=== PATIENT | male | born 1995 | race Caucasian/White ===

== ENCOUNTER 2025-11-02 10:27 | Emergency (ER) | payer OTHER, SELFPAY ==
[2025-11-02 10:34] VITALS: BP 180/76
--- NOTE | 2025-11-02 12:42 | ED.MUSCINJ ---
HPI-Injury
General
Chief Complaint: Musculo-Skeletal Complaint
Source: patient
Exam Limitations: none
Time Seen by Provider: 11/02/25 12:38
Nursing documentation reviewed up to this point in time: agreed with
History of Present Illness-Injury
Is this injury a work related problem?: Yes
Is pt an associate of [facility]?: No
Initial Injury comments:
Note:
CHIEF COMPLAINT(S)
Left elbow pain following a fall.
HISTORY OF PRESENT ILLNESS
The patient is a 30-year-old male who presented with left elbow pain and tingling following a fall that occurred this morning. The patient reports slipping and falling directly onto the left elbow. Initially, there was no significant pain; however,
two hours post-fall, the patient experienced soreness and a tingling sensation extending to the left index finger. The patient describes the sensation as a tingling, with some numbness experienced closer to the middle of the finger. The patient
denies current significant discomfort aside from residual soreness and reports being engaged in weightlifting activities regularly. There were no additional injuries with the exception of a minor impact to the left knee which was not associated with
pain. The patient expressed concern about potential fractures, but physical examination and X-ray findings indicate no fractures present.
SOCIAL DETERMINANTS AFFECTING HEALTH
The patient is involved in regular weightlifting.
PHYSICAL EXAM
General: Alert, no acute distress.
Skin: Warm, dry.
Head: Normocephalic, atraumatic.
Neck: Supple, trachea midline.
Ears, Nose, Mouth, and Throat: Oral mucosa moist.
Cardiovascular: Normal peripheral perfusion, no edema.
Respiratory: Respirations are non-labored.
Gastrointestinal: Abdomen nondistended.
Back: Normal range of motion, normal alignment.
Musculoskeletal: Normal range of motion, normal strength. Left elbow with no tenderness, no deformity and no swelling.
Neurological: Alert and oriented to person, place, time, and situation. Sensory examination was notable for tingling in the left index finger, but no motor deficits observed.
Psychiatric: Cooperative, appropriate mood & affect.
PLAN
- Recommend application of ice to the affected area to reduce swelling.
- Uesm-lwh-hwjcfth Ibuprofen for pain management, provided to the patient in the facility.
- No further intervention required at the present time as the evaluation, including X-ray, showed no fractures or significant findings.
- Encourage follow-up if symptoms persist or worsen.
DIFFERENTIAL DIAGNOSIS
The Differential Diagnosis includes, in no particular order and is not limited to:
- Soft tissue injury
- Ulnar nerve compression or contusion
- Bursitis
- Tendinitis
- Fracture (excluded by current X-ray findings)
- Radial nerve injury
- Joint sprain
- Olecranon bursitis
- Ligament strain
- Impingement syndrome
CARE-UPDATE
11/02/25 - 12:43
Patients elbow x-ray reveals no fracture. Exhibits full range of motion across all extremities. No additional injuries noted.
Disposition:
SUMMARY OF ENCOUNTER
The patient was seen in the emergency department for left elbow pain and tingling following a fall. Evaluation included physical examination and imaging, which indicated no fracture or significant findings. The patient was diagnosed with a left
elbow contusion. Management included pain relief with ibuprofen, as needed, and reassurance regarding the absence of fractures.
DISPOSITION
Discharge home in good condition.
ASSESSMENT
Left elbow contusion with no signs of fracture.
EMERGENCY TREATMENTS ADMINISTERED
Ibuprofen was given in the emergency department.
PLAN
Recommend applying ice to the affected area and taking meoo-zyz-dhqkpyu ibuprofen as needed for pain. Follow up with the primary care provider if symptoms persist or worsen.
INDEPENDENT REVIEW OF LABS AND INTERPRETATION OF TESTS
My independent interpretation of the elbow x-ray is that there is no fracture present.
PATIENT EDUCATION AND COUNSELING
The patient was counseled on the use of ice and ibuprofen for symptom management and reassured about the lack of fractures.
FOLLOW-UP INSTRUCTIONS
Follow up with primary care as needed.
MEDICATION RECONCILIATION
Ibuprofen was administered in the emergency department for pain management.
MEDICAL DECISION MAKING
-Complexity of Data Reviewed: The Differential Diagnosis includes soft tissue injury, ulnar nerve compression or contusion, bursitis, tendinitis, fracture (excluded by current X-ray findings), radial nerve injury, joint sprain, olecranon bursitis,
ligament strain, and impingement syndrome.
-Data:
Category 2
My independent interpretation of the elbow x-ray indicates no fractures.
-Risk: Consideration of Admission/Observation: Escalation of care including admission/observation was considered given the complexity and risk of the patients presenting complaint and exam findings. However, ultimately I feel the patient is safe for
outpatient management with close follow-up. Reasoning: Work-up is reassuring, does not reveal any acute life/organ threatening processes, patients symptoms are well controlled upon reevaluation, reexamination is reassuring, vitals are stable, and
the patient is agreeable with discharge and reliable for follow-up.
DIAGNOSIS
- Contusion of the left elbow (ICD-10: S50.02XA)
Phy Exam
Physical Exam
Physical Exam:
.
Injury Course
Orders/Labs/Results
Orders:
Orders
11/02/25 10:37
CR Elbow - Left Min 3 Views Urgent
Comment:
Reason For Exam: Injury
11/02/25 12:43
Ibuprofen [Motrin] 800 mg PO NOW STA
*Pulse Oximetry
SaO2: 99
Oxygen Mode of Delivery: Room air
Patient hypoxic: no
*Critical Care Note
Total Time (30-74mins, 75-104mins- exclusive of procedures): Not Applicable
ED Attending Note
-
Portions of this chart may have been created with voice recognition software.� Occasional wrong word or��sound alike� substitutions may have occurred due to the inherent limitations of voice recognition software.
Discharge Plan
Departure
Patient Disposition: Home (Routine Discharge)
Date of Disposition: 11/02/25
Time of Disposition: 12:44
Patient with high blood pressure during this ER visit?: Yes
Condition: Good
Discharge Problem:
Contusion of elbow, left
Instructions: Muscle and Bone Pain (DC), Contusion (DC), BLOOD PRESSURE
Activity Restrictions/Additional Instructions:
Stable to return to work. Get blood pressure rechecked this week. Return for any concerns.
Discharge Date and Time
Print Language: BULGARIAN
[2025-11-02] MEDS: MOTRIN 800 MG PO (13:09)
[2025-11-02 13:16] VITALS: BP 167/79
== END 2025-11-02 13:20 | disposition home or self-care (01) ==
LOC: EMR 10:27
PROVIDERS: EMERGENCY PHYSICIAN Emergency Medicine; FAMILY PHYSICIAN Family Medicine
DX: S50.02XA Contusion of left elbow, initial encounter (principal); W01.0XXA Fall on same level from slipping, tripping and stumbling without subsequent striking against object, initial encounter
CPT/HCPCS: 99283; 73080